=== PATIENT | female | born 1955 | race Caucasian/White ===

== ENCOUNTER → 2023-05-17 06:23 | Day surgery (SDC) | payer MEDICARE, BC, SELFPAY | LOC: GI 06:23 | PROVIDERS: ATTENDING PHYSICIAN Specialist; FAMILY PHYSICIAN Internal Medicine | DX: K22.70 Barrett's esophagus without dysplasia (principal); K29.60 Other gastritis without bleeding; K22.89 Other specified disease of esophagus; K31.89 Other diseases of stomach and duodenum; R10.13 Epigastric pain; D50.9 Iron deficiency anemia, unspecified | CPT/HCPCS: 43239; 88305; 88342 ==

== ENCOUNTER → 2023-06-06 10:14 | Outpatient (REF) | payer MEDICARE, BC, SELFPAY | LOC: WDC 10:14 | PROVIDERS: ATTENDING PHYSICIAN Obstetrics & Gynecology; FAMILY PHYSICIAN Internal Medicine | DX: N64.4 Mastodynia (principal) | CPT/HCPCS: 76642; 77062; 77066 ==

== ENCOUNTER → 2023-08-07 16:30 | Outpatient (REF) | payer BC, MEDICARE, SELFPAY ==
[2023-08-07 17:02] LABS: % Basophils 0.5 % (0-2); % Eosinophils 1.3 % (0-6); % Immature Granulocytes 0.3 % (0-0.5); % Neutrophils 50.9 % (42.2-75.2); Absolute Eosinophils 0.1 10^3/uL (0-0.7); Absolute Lymphocytes 1.4 10^3/uL (1.2-3.4); Absolute Monocytes 0.3 10^3/uL (0.1-0.6); Absolute Neutrophils 1.9 10^3/uL (1.4-6.5); Hemoglobin 13.7 g/dL (12.0-16.0); Mean Corp Hgb Conc. 35.1 g/dL (33.0-37.0); Mean Corpuscular Hgb 32.5 pg (27.0-31.0); Mean Corpuscular Volume 92.4 fL (81.0-99.0); Mean Platelet Volume 9.7 fL (7.4-10.4); Nucleated Red Blood Cells % 0 %; Platelet Count 264 10^3/uL (130-400); Red Blood Cell Count 4.22 10^6/uL (4.20-5.40); Red Cell Dist. Width 11.6 % (11.5-14.5); White Blood Cell Count 3.8 10^3/uL (4.8-10.8)
[2023-08-07 17:18] LABS: ALT (SGPT) 25 U/L (0-35); AST (SGOT) 45 U/L (14-36); Albumin 4.7 g/dl (3.5-5.0); Alkaline Phosphatase 141 U/L (38-126); Blood Urea Nitrogen 24 mg/dl (7-17); Calcium 10.3 mg/dl (8.4-10.2); Carbon Dioxide 28 mmol/L (22-30); Chloride 101 mmol/L (98-107); Glucose 88 mg/dl (70-99); Iron 121 ug/dl (37-170); Potassium 3.9 mmol/L (3.5-5.1); Sodium 135 mmol/L (135-145); Total Bilirubin 0.5 mg/dl (0.2-1.3); Total Protein 7.5 g/dl (6.3-8.2); eGFR > 60.00
[2023-08-07 17:52] LABS: Percent Saturation 40 % (20-50); Total Iron Binding Capacity 300 ug/dl (265-497)
[2023-08-07 17:53] LABS: Ferritin 97.8 ng/ml (11.1-264.0)
[2023-08-07 18:25] LABS: Folate 14.1 ng/ml (2.76-20); Vitamin B12 714 pg/ml (239-931)
[2023-08-09 13:57] LABS: Beta-2-Microglobulin 1.3 mg/L (<=3.0)
[2023-08-10 23:52] LABS: Albumin 4.53 g/dL (3.75-5.01); Alpha 1 Globulin 0.29 g/dL (0.19-0.46); Alpha 2 Globulin 0.71 g/dL (0.48-1.05); Free Kappa Light Chains,Quant 12.97 mg/L (3.30-19.40); Free Lambda Light Chains,Quant 7.78 mg/L (5.71-26.30); IgA 141 mg/dL (68-408); IgG 913 mg/dL (768-1632); IgM 61 mg/dL (35-263); Immunofixation Electrophoresis IFE Done; Kappa/Lambda Fr Light Ratio 1.67 (0.26-1.65); Total Protein-Electrophoresis 7.2 g/dL (6.3-8.2)
== END ==
LOC: REG 16:30
PROVIDERS: ATTENDING PHYSICIAN Internal Medicine Hematology & Oncology; OTHER PHYSICIAN Internal Medicine Rheumatology
DX: D50.0 Iron deficiency anemia secondary to blood loss (chronic) (principal); R53.83 Other fatigue
CPT/HCPCS: 36415; 80053; 82232; 82607; 82728; 82746; 82784; 83521; 83540; 83550; 84155; 84165; 85025; 86334

== ENCOUNTER → 2023-09-18 14:24 | Outpatient (REF) | payer BC, MEDICARE, SELFPAY ==
[2023-09-18 16:05] LABS: % Basophils 0.8 % (0-2); % Eosinophils 1.5 % (0-6); % Immature Granulocytes 0.5 % (0-0.5); % Lymphocytes 33.2 % (20.5-51.1); % Monocytes 8.6 % (1.7-9.3); % Neutrophils 55.4 % (42.2-75.2); Absolute Eosinophils 0.1 10^3/uL (0-0.7); Absolute Lymphocytes 1.3 10^3/uL (1.2-3.4); Absolute Monocytes 0.3 10^3/uL (0.1-0.6); Absolute Neutrophils 2.2 10^3/uL (1.4-6.5); Hematocrit 38.8 % (37.0-47.0); Hemoglobin 13.5 g/dL (12.0-16.0); Mean Corp Hgb Conc. 34.8 g/dL (33.0-37.0); Mean Corpuscular Hgb 32.4 pg (27.0-31.0); Nucleated Red Blood Cells % 0 %; Platelet Count 264 10^3/uL (130-400); Red Blood Cell Count 4.17 10^6/uL (4.20-5.40); Red Cell Dist. Width 11.5 % (11.5-14.5); White Blood Cell Count 3.9 10^3/uL (4.8-10.8)
[2023-09-18 16:32] LABS: ALT (SGPT) 24 U/L (0-35); AST (SGOT) 41 U/L (14-36); Albumin 4.7 g/dl (3.5-5.0); Alkaline Phosphatase 157 U/L (38-126); Blood Urea Nitrogen 22 mg/dl (7-17); Calcium 10.2 mg/dl (8.4-10.2); Carbon Dioxide 27 mmol/L (22-30); Chloride 99 mmol/L (98-107); Glucose 82 mg/dl (70-99); Iron 115 ug/dl (37-170); Sodium 136 mmol/L (135-145); Total Bilirubin 0.5 mg/dl (0.2-1.3); Total Protein 7.3 g/dl (6.3-8.2); eGFR > 60.00
[2023-09-18 16:40] LABS: Percent Saturation 33 % (20-50); Total Iron Binding Capacity 343 ug/dl (265-497)
[2023-09-18 17:33] LABS: Folate 12.5 ng/ml (2.76-20); Vitamin B12 628 pg/ml (239-931)
== END ==
LOC: RAD 14:24
PROVIDERS: ATTENDING PHYSICIAN Obstetrics & Gynecology; FAMILY PHYSICIAN Internal Medicine; REFERRING PHYSICIAN Internal Medicine Hematology & Oncology
DX: Z78.0 Asymptomatic menopausal state (principal); D50.0 Iron deficiency anemia secondary to blood loss (chronic); R53.83 Other fatigue
CPT/HCPCS: 36415; 80053; 82607; 82728; 82746; 82784; 83521; 83540; 83550; 84155; 84165; 85025; 86146; 86334

== ENCOUNTER → 2023-10-25 13:29 | Outpatient (REF) | payer BC, SELFPAY ==
[2023-10-25 15:23] LABS: Creatine Phosphokinase 155 U/L (30-135)
[2023-10-25 15:24] LABS: Erythrocyte Sed Rate 10 mm/hour (0-20)
[2023-10-25 16:48] LABS: C-Reactive Protein < 5.00 mg/L (0.0-10.00)
[2023-10-25 17:11] LABS: Hepatitis B Surface Antigen Negative (Negative)
[2023-10-25 17:31] LABS: Vitamin D, 25-OH*** 31.3 ng/mL (30-80)
[2023-10-25 17:45] LABS: TSH 0.43 uIU/ml (0.47-4.68)
[2023-10-25 18:46] LABS: Hepatitis B Core Ab, IgM Negative (Negative)
== END ==
LOC: RAD 13:29
PROVIDERS: ATTENDING PHYSICIAN Physician Assistant
DX: E55.9 Vitamin D deficiency, unspecified (principal); G89.29 Other chronic pain; K75.9 Inflammatory liver disease, unspecified; M06.09 Rheumatoid arthritis without rheumatoid factor, multiple sites; M25.562 Pain in left knee; Z11.1 Encounter for screening for respiratory tuberculosis; M79.18 Myalgia, other site; M54.2 Cervicalgia
CPT/HCPCS: 36415; 72050; 72114; 73564; 82306; 82550; 84443; 85652; 86140; 86200; 86430; 86705; 87340

== ENCOUNTER 2024-05-05 02:01 | Emergency (ER) | payer BC, MEDICARE, SELFPAY ==
[2024-05-05 02:05] VITALS: BP 176/110
[2024-05-05 02:15] VITALS: BMI 28.3
[2024-05-05 02:20] LABS: % Basophils 0.5 % (0-2); % Immature Granulocytes 0.1 % (0-0.5); % Lymphocytes 37.3 % (20.5-51.1); % Monocytes 8.6 % (1.7-9.3); % Neutrophils 51.5 % (42.2-75.2); Absolute Eosinophils 0.2 10^3/uL (0-0.7); Absolute Lymphocytes 3.1 10^3/uL (1.2-3.4); Absolute Monocytes 0.7 10^3/uL (0.1-0.6); Absolute Neutrophils 4.3 10^3/uL (1.4-6.5); Hematocrit 44.3 % (37.0-47.0); Hemoglobin 15.8 g/dL (12.0-16.0); Mean Corp Hgb Conc. 35.7 g/dL (33.0-37.0); Mean Corpuscular Hgb 31.7 pg (27.0-31.0); Mean Platelet Volume 9.4 fL (7.4-10.4); Nucleated Red Blood Cells % 0 %; Platelet Count 353 10^3/uL (130-400); Red Blood Cell Count 4.98 10^6/uL (4.20-5.40); Red Cell Dist. Width 11.5 % (11.5-14.5); White Blood Cell Count 8.4 10^3/uL (4.8-10.8)
[2024-05-05 02:42] LABS: ALT (SGPT) 25 U/L (0-35); AST (SGOT) 33 U/L (14-36); Albumin 4.9 g/dl (3.5-5.0); Alkaline Phosphatase 186 U/L (38-126); Blood Urea Nitrogen 31 mg/dl (7-17); Calcium 10.3 mg/dl (8.4-10.2); Carbon Dioxide 18 mmol/L (22-30); Chloride 101 mmol/L (98-107); Estimated Creatinine Clearance 75 ml/min; Glucose 126 mg/dl (70-99); Sodium 137 mmol/L (135-145); Total Bilirubin 0.7 mg/dl (0.2-1.3); Total Protein 7.9 g/dl (6.3-8.2); eGFR > 60.00
[2024-05-05 02:53] LABS: Troponin I < 0.012 ng/ml
[2024-05-05 03:00] VITALS: BP 147/89
--- NOTE | 2024-05-05 03:50 | ED.GENMED ---
History of Present Illness
General
Chief Complaint: Chest Pain
Source: patient
Time Seen by Provider: 05/05/24 03:41
History of Present Illness
History of Present Illness:
68-year-old female presents to the emergency room after being awoken from sleep with chest discomfort. She describes as a heaviness in her chest. Pain was more severe earlier. It still exists but is better. Patient denies any previous cardiac
disease. She does have a history of anxiety and depression for which she was prescribed several medications. She stopped taking her medications about 5 days ago. Previous. Prescribed Pristiq, lamotrigine, lorazepam and Vyvanse. She restarted
the Pristiq 2 days ago. She did not take the lorazepam yesterday or today. Patient did recently travel to [place].
Past History
Past History
ED Past Medical History: HTN and Other (Rheumatoid arthritis, osteoarthritis, depression, anxiety)
ED Past Surgical History: Other (Procedures for varicosities)
Social History
Tobacco: Non-smoker
Alcohol: None
Drug: None
Personal:
Living: with family
Employment: Employed
Family History
Family History: Other (Noncontributory)
Phy Exam
Physical Exam
Physical Exam:
General: Awake, Alert, Oriented X3. No acute distress.
Vitals: unremarkable
Head: Atraumatic
Eyes: Pupils equal, EOMI
Throat: Airway intact, no exudates
Neck: Trachea midline
Lungs: Clear and equal b/l
Heart: Regular rate, no murmurs
Abd: Soft, Nontender, No pulsatile mass
Neuro: Nonfocal
Skin: Warm, dry, no rash
Extremities: pulses equal b/l, no edema
Scores
Heart Score for Chest Pain Patients
STEMI patient?: No
History: Slightly or Non-Suspicious
ECG: Normal
Age: >45 - <65 years
Risk Factors: 1 or 2 Risk Factors
Troponin: </= Normal Limit
Heart Score for Chest Pain Patients: 2
Heart Score Risk: 2.5% MACE over next 6 weeks
Course
Orders/Labs/Results
Orders:
Orders
05/05/24 02:02
ECG [Electrocardiogram (*1)] Urgent
Reason for Study: Chest Pain
EKG- Treatment ONCE
05/05/24 02:13
Complete Blood Count/With Diff Urgent
Comprehensive Metabolic Panel Urgent
Troponin I Urgent
05/05/24 03:50
Lorazepam [Ativan] 1 mg IV NOW STA
05/05/24 04:01
D-Dimer Urgent
Abnormal Lab Results
05/05/24
02:13
MCH 31.7 H pg
(27.0-31.0)
Absolute Monos (auto) 0.7 H 10^3/uL
(0.1-0.6)
Potassium 3.0 L mmol/L
(3.5-5.1)
Carbon Dioxide 18 L mmol/L
(22-30)
BUN 31 H mg/dl
(7-17)
Glucose 126 H mg/dl
(70-99)
Calcium 10.3 H mg/dl
(8.4-10.2)
Alkaline Phosphatase 186 H U/L
(38-126)
05/05/24 02:13
05/05/24 02:13
Vital Signs
Initial and Last Documented VS:
Initial Vital Signs
Temp Pulse Resp BP Pulse Ox
97.1 F 92 36 176/110 100
05/05/24 02:05 05/05/24 02:05 05/05/24 02:05 05/05/24 02:05 05/05/24 02:05
Last Documented Vital Signs
Temp Pulse Resp BP Pulse Ox
97.1 F 76 20 147/89 99
05/05/24 02:05 05/05/24 04:45 05/05/24 04:45 05/05/24 03:00 05/05/24 04:45
MDM/Problems Addressed
Differential Diagnosis Includes:
ACS, PE, anxiety, benzo withdrawal
MDM/Problems Addressed:
Patient presents with chest pain, palpitations, feeling short of breath. Workup here shows normal D-dimer, normal troponin, normal EKG. Patient did abruptly stop some of her psychiatric medications. Suspect this is at least in part in withdrawal
type situation. Patient feels much better after Ativan here. Given her normal workup she stable for discharge home. She should discuss medication management and adjustment with her primary care provider. She understands now that she will need to
be weaned off of some of her medication should she desire to not take them anymore
*Pulse Oximetry
Patient hypoxic: no
*EKG
Interpreted by ED Provider?: Yes
Heart Rate: 92
Rate: normal
Rhythm: sinus
[place]: normal axis
Interval: normal interval
QRS Pattern: normal QRS
Ischemia: no ischemia
*Code Inspector Interpretation
Rate: normal
Interpretation: normal
Rhythm: sinus
*Critical Care Note
Total Time (30-74mins, 75-104mins- exclusive of procedures): Not Applicable
ED Attending Note
-
Portions of this chart may have been created with voice recognition software.� Occasional wrong word or��sound alike� substitutions may have occurred due to the inherent limitations of voice recognition software.
Discharge Plan
Departure
Patient Disposition: Home (Routine Discharge)
Date of Disposition: 05/05/24
Time of Disposition: 05:37
Patient with high blood pressure during this ER visit?: Yes
Condition: Good
Discharge Problem:
Chest pain, Acute anxiety, Benzodiazepine withdrawal
Instructions: Anxiety, Adult (DC), Chest Pain PCP Follow Up, BLOOD PRESSURE
Prescriptions:
No Action
cyclobenzaprine 10 MG tablet
10 mg PO PRN (Reason: muscle spasms)
lorazepam 0.5 MG tablet
0.5 mg PO PRN (Reason: anxiety)
diclofenac sodium 75 MG tablet,delayed release (DR/EC)
75 mg PO BID
hydroxychloroquine 200 MG tablet
200 mg PO BID
aripiprazole [Abilify] 5 MG tablet
15 mg PO DAILY
Multivitamin
4 PO DAILY
Patient Comments:
4 adult gummies
Probiotics
3 capsules PO QID
Patient Comments:
with meals
Restasis 0.05% Ophthalmic Emulsion:
2 drp BOTH EYES BID
Vitamin D
800 mg PO DAILY
calcium carbonate [Calcium 600] 600 MG tablet
600 mg PO BID
docosahexaenoic acid-epa 1 CAP capsule
2 cap PO BID
Flonase Nasal [place]:
sennosides [senna] 1 TABLET tablet
2 tab PO BID Qty: 0 0RF
acetaminophen 325 MG tablet
650 mg PO Q4HWA Qty: 0 0RF
aspirin 325 MG tablet,delayed release (DR/EC)
325 mg PO DAILY Qty: 0 0RF
docusate sodium 100 MG capsule
100 mg PO BID Qty: 0 0RF
oxycodone 5 MG tablet
5 - 10 mg PO Q4HPRN PRN (Reason: mild pain) Qty: 120 0RF
oxycodone [OxyContin] 10 MG tablet,oral only,ext.rel.12 hr
10 mg PO DAILY Qty: 7 0RF
irbesartan 150 MG tablet
150 mg PO DAILY Qty: 0 0RF
Patient Comments:
in the pm
ondansetron HCl 4 MG tablet
4 mg PO Q8HPRN PRN (Reason: nausea) Qty: 10 0RF
Referrals:
Jaspreet Williamson, DO [Family Provider] -
Activity Restrictions/Additional Instructions:
Do not stop your medications abruptly. If you wish to get off of lorazepam and other medications you will need to be weaned off. Discuss this with your family doctor
Interventions
Interventions:
*Risk Screen - Suicide Last Done: 05/05/24 02:15
*General Assessment Last Done: 05/05/24 02:15
*Neglect/Abuse Screening Last Done: 05/05/24 02:15
ED- Fall Risk Assessment Last Done: 05/05/24 02:26
*ED COVID-19 Vaccine History Last Done: 05/05/24 02:15
ED- Cardiac Assessment Last Done: 05/05/24 02:26
ED-Psychological Assessment Last Done: 05/05/24 02:27
Discharge Date and Time
Print Language: BULGARIAN
[2024-05-05] MEDS: ATIVAN 1 MG IV (04:00)
[2024-05-05 04:53] LABS: D-Dimer < 0.27 ug/mlFEU (0.00-0.50)
== END 2024-05-05 06:01 | disposition home or self-care (01) ==
LOC: EMR 02:01
PROVIDERS: Emergency Medicine; EMERGENCY PHYSICIAN Emergency Medicine; FAMILY PHYSICIAN Internal Medicine
DX: R07.89 Other chest pain (principal); F41.9 Anxiety disorder, unspecified; F13.239 Sedative, hypnotic or anxiolytic dependence with withdrawal, unspecified; I10 Essential (primary) hypertension; F32.A Depression, unspecified
CPT/HCPCS: 99284; 96374; 80053; 84484; 85025; 85379; 93005

== ENCOUNTER 2024-07-20 06:20 | Day surgery (SDC) | payer BC, MEDICARE, SELFPAY ==
[2024-06-23 14:18] VITALS: BMI 30.6
[2024-06-23 14:18] LABS: Hematocrit 39.3 % (37.0-47.0); Hemoglobin 13.4 g/dL (12.0-16.0); Mean Corp Hgb Conc. 34.1 g/dL (33.0-37.0); Mean Corpuscular Hgb 31.8 pg (27.0-31.0); Mean Corpuscular Volume 93.3 fL (81.0-99.0); Mean Platelet Volume 10.2 fL (7.4-10.4); Platelet Count 243 10^3/uL (130-400); Red Blood Cell Count 4.21 10^6/uL (4.20-5.40); Red Cell Dist. Width 12.1 % (11.5-14.5); White Blood Cell Count 5.1 10^3/uL (4.8-10.8)
[2024-06-23 14:44] LABS: ALT (SGPT) 22 U/L (0-35); AST (SGOT) 31 U/L (14-36); Albumin 4.4 g/dl (3.5-5.0); Alkaline Phosphatase 151 U/L (38-126); Blood Urea Nitrogen 20 mg/dl (7-17); Calcium 9.9 mg/dl (8.4-10.2); Carbon Dioxide 29 mmol/L (22-30); Chloride 101 mmol/L (98-107); Estimated Creatinine Clearance 91 ml/min; Glucose 87 mg/dl (70-99); Potassium 4.2 mmol/L (3.5-5.1); Sodium 138 mmol/L (135-145); Total Bilirubin 0.4 mg/dl (0.2-1.3); Total Protein 7.2 g/dl (6.3-8.2); eGFR > 60.00
[2024-06-23 17:09] VITALS: BMI 30.6
[2024-06-24 09:21] LABS: Glycohemoglobin (HgbA1c) 5.4 % (4.0-5.6)
[2024-07-20] VITALS (11 sets, daily range): BP systolic 123–158; BP diastolic 69–87
[2024-07-20] MEDS: NORMOSOL-R/PLASMALYTE-A 1000 IV (07:20)
[2024-07-20] MEDS: TYLENOL 650 MG PO (07:21)
[2024-07-20] MEDS: CELEBREX 200 MG PO (07:21)
--- NOTE | 2024-07-20 07:29 | W.DS.TRANS ---
DC Summary - Manager Statistical
-
Discharge Instructions:
Sleep Apnea Risk Low
Discharge Diagnosis/Procedures L TKA 07/20/24
Diet As tolerated
Activity With Walker
Driving Restrictions No driving
Bathing Restrictions OK to Shower
Other Services PT
Instructions:
Stand-Alone Forms: SDS Total Hip and Knee D/C
Changes to Home Medications: Yes
Discharge Medications:
DC Medications w/original date entered in [employer]
cyclobenzaprine 10 mg tablet 10 mg PO QID PRN Muscle Spasms 07/07/12
Sudafed 1 tab PO Q4H PRN congestion 06/19/24
cetirizine 10 mg tablet (Zyrtec) 10 mg PO DAILY PRN allergies 06/19/24
cyclosporine 0.05 % eye drops in a dropperette (Restasis) 1 drp ophthalmic (eye) Q12H 06/19/24
desvenlafaxine succinate 100 mg tablet,extended release 24 hr (Pristiq) 100 mg PO DAILY 06/19/24
estradiol 10 mcg vaginal tablet (Vagifem) 10 mcg vaginal .2 TIMES A WEEK 06/19/24
lamotrigine 150 mg tablet 150 mg PO BID 06/19/24
lisdexamfetamine 70 mg capsule (Vyvanse) 70 mg PO 1500 06/19/24
lorazepam 1 mg tablet 1 mg PO DIRECTED 06/19/24
lorazepam 1 mg tablet 2 mg PO HS PRN anxiety 06/19/24
multivitamin 1 tab PO DAILY 06/19/24
polyethylene glycol 3350 17 gram oral powder packet (Miralax) 17 g PO BID 06/19/24
trazodone 100 mg tablet 200 mg PO HS 06/19/24
mupirocin 2 % topical ointment 1 applic intranasal BID #1 tube 06/23/24
irbesartan 75 mg tablet 75 mg PO DAILY 07/06/24
nebivolol 10 mg tablet 10 mg PO DAILY 07/07/24
vonoprazan 10 mg tablet (Voquezna) 20 mg PO DAILY reflux 07/07/24
acetaminophen 325 mg tablet 650 mg (2 x 325 mg) PO QID #0 tabs 07/20/24
acetaminophen 325 mg tablet (Tylenol) 650 mg (2 x 325 mg) PO QID #1 tab 07/20/24
aspirin 325 mg tablet 325 mg PO DAILY blood clot prevention #1 tab 07/20/24
dexamethasone 4 mg tablet 4 mg PO BID inflammation #6 tabs 07/20/24
docusate sodium 100 mg capsule (Colace) 100 mg PO BID stool softner #1 cap 07/20/24
gabapentin 300 mg capsule 300 mg PO HS sleep/pain #10 caps 07/20/24
magnesium hydroxide 400 mg/5 mL oral suspension (Milk of Magnesia) 30 ml PO HS PRN Constipation #1 mL 07/20/24
meloxicam 15 mg tablet 15 mg PO DAILY anti-inflammatory #14 tabs 07/20/24
ondansetron 4 mg disintegrating tablet 4 mg PO Q6H PRN n/v #20 tabs 07/20/24
oxycodone 5 mg tablet 5 mg PO Q6H PRN 1 tab moderate pain, 2 tabs severe pain #30 tabs 07/20/24
sennosides 8.6 mg tablet (Senokot) 17.2 mg (2 x 8.6 mg) PO BID laxative #2 tabs 07/20/24
Home Medication Changes
mupirocin 2 % topical ointment 1 applic intranasal BID #1 tube 06/23/24
irbesartan 75 mg tablet 75 mg PO DAILY 07/06/24
nebivolol 10 mg tablet 10 mg PO DAILY 07/07/24
vonoprazan 10 mg tablet (Voquezna) 20 mg PO DAILY reflux 07/07/24
acetaminophen 325 mg tablet 650 mg (2 x 325 mg) PO QID #0 tabs 07/20/24
acetaminophen 325 mg tablet (Tylenol) 650 mg (2 x 325 mg) PO QID #1 tab 07/20/24
aspirin 325 mg tablet 325 mg PO DAILY blood clot prevention #1 tab 07/20/24
dexamethasone 4 mg tablet 4 mg PO BID inflammation #6 tabs 07/20/24
docusate sodium 100 mg capsule (Colace) 100 mg PO BID stool softner #1 cap 07/20/24
gabapentin 300 mg capsule 300 mg PO HS sleep/pain #10 caps 07/20/24
magnesium hydroxide 400 mg/5 mL oral suspension (Milk of Magnesia) 30 ml PO HS PRN Constipation #1 mL 07/20/24
meloxicam 15 mg tablet 15 mg PO DAILY anti-inflammatory #14 tabs 07/20/24
ondansetron 4 mg disintegrating tablet 4 mg PO Q6H PRN n/v #20 tabs 07/20/24
oxycodone 5 mg tablet 5 mg PO Q6H PRN 1 tab moderate pain, 2 tabs severe pain #30 tabs 07/20/24
sennosides 8.6 mg tablet (Senokot) 17.2 mg (2 x 8.6 mg) PO BID laxative #2 tabs 07/20/24
Pending Results: No
--- NOTE | 2024-07-20 08:13 | CM ---
CM was updated that patient with be discharged to home post-operatively. CM updated [facility] Admission RN.
--- NOTE | 2024-07-20 08:30 | VNURNOTE ---
[facility] lia[facility] rec'ed info that patient changed her mind and now wanted to go home same day of surgery. [facility] Intake, supervisors, schedulers notified. Liaison called patient's spouse Tono and explained SDS services. Verified address. Spouse
stated he will cotton picker walker from Ortho today. Referral placed in [facility].
[2024-07-20] MEDS: ANCEF 5 IV (12:04)
[2024-07-20] MEDS: ROXICODONE 5 MG PO (12:47)
== END 2024-07-20 12:50 | disposition home or self-care (01) ==
LOC: SDS 06:20
PROVIDERS: ATTENDING PHYSICIAN Specialist; FAMILY PHYSICIAN Internal Medicine; OTHER PHYSICIAN Physician Assistant
DX: M17.12 Unilateral primary osteoarthritis, left knee (principal); I49.3 Ventricular premature depolarization; G62.9 Polyneuropathy, unspecified
CPT/HCPCS: 27447; 36415; 73560; 80053; 83036; 85027; 87070; 93005; 97162; C1713; C1776

== ENCOUNTER → 2024-08-03 15:42 | Outpatient (REF) | payer BC, MEDICARE, SELFPAY | LOC: RAD 15:42 | PROVIDERS: ATTENDING PHYSICIAN Physician Assistant Surgical; FAMILY PHYSICIAN Internal Medicine | DX: Z96.652 Presence of left artificial knee joint (principal) | CPT/HCPCS: 93971 ==

== ENCOUNTER 2024-08-17 15:43 | Emergency (ER) | payer BC, MEDICARE, SELFPAY ==
[2024-08-17 16:01] VITALS: BP 177/95
[2024-08-17 16:12] LABS: % Basophils 0.8 % (0-2); % Eosinophils 3.9 % (0-6); % Immature Granulocytes 0.2 % (0-0.5); % Lymphocytes 31.8 % (20.5-51.1); % Monocytes 10.5 % (1.7-9.3); % Neutrophils 52.8 % (42.2-75.2); Absolute Eosinophils 0.2 10^3/uL (0-0.7); Absolute Lymphocytes 1.6 10^3/uL (1.2-3.4); Absolute Monocytes 0.5 10^3/uL (0.1-0.6); Absolute Neutrophils 2.7 10^3/uL (1.4-6.5); Hematocrit 38.5 % (37.0-47.0); Hemoglobin 12.7 g/dL (12.0-16.0); Mean Corpuscular Hgb 31.2 pg (27.0-31.0); Mean Corpuscular Volume 94.6 fL (81.0-99.0); Mean Platelet Volume 9.3 fL (7.4-10.4); Nucleated Red Blood Cells % 0 %; Platelet Count 364 10^3/uL (130-400); Red Blood Cell Count 4.07 10^6/uL (4.20-5.40); Red Cell Dist. Width 12.1 % (11.5-14.5); White Blood Cell Count 5.2 10^3/uL (4.8-10.8)
[2024-08-17 16:39] LABS: ALT (SGPT) 14 U/L (0-35); AST (SGOT) 24 U/L (14-36); Albumin 4.7 g/dl (3.5-5.0); Alkaline Phosphatase 140 U/L (38-126); Blood Urea Nitrogen 23 mg/dl (7-17); Calcium 9.8 mg/dl (8.4-10.2); Carbon Dioxide 27 mmol/L (22-30); Chloride 103 mmol/L (98-107); Glucose 103 mg/dl (70-99); Sodium 140 mmol/L (135-145); Total Bilirubin 0.4 mg/dl (0.2-1.3); Total Protein 7.5 g/dl (6.3-8.2); eGFR > 60.00
[2024-08-17 16:45] LABS: Troponin I < 0.012 ng/ml
--- NOTE | 2024-08-17 18:59 | ED.GENMED ---
History of Present Illness
General
Chief Complaint: Cardiac Symptoms
Time Seen by Provider: 08/17/24 18:59
History of Present Illness
History of Present Illness:
TIME OF INITIAL ENCOUNTER: 7 PM
HPI: Earlier today, the patient had sharp stabbing pain in the anterior chest. The symptoms have spontaneously improved currently. She has no exertional symptoms. There is some of shortness of breath. She had a similar episode a couple of months
ago that was related to benzo withdrawal when she forgot her medication on a vacation. She did have left knee surgery about a month ago. She had been on aspirin.
EXAM:
GENERAL: Well appearing in no distress
HEENT: Moist oral mucosa
CARDIOVASCULAR: No murmurs, normal heart rate, regular rhythm, No significant chest wall tenderness
PULMONARY: No respiratory distress, breath sounds are clear and equal
ABDOMEN: Soft with no peritoneal signs, no tenderness
NEUROLOGIC: Excellent strength all extremities, no coordination deficits
PSYCHIATRIC: Appropriate mental status, normal insight and judgement
EXTREMITIES: Surgical wound noted left anterior knee with cha
SKIN: No rash, no lesions
NUMBER AND COMPLEXITY OF PROBLEMS ADDRESSED AT THE ENCOUNTER
� Chronic conditions affecting care: Anemia, anxiety/depression, GERD, high blood pressure
� Acute Exacerbation and/or Progression of Chronic Illness: This is an acute problem
� Differential Diagnosis includes: Anxiety, chest wall pain, GERD, PE, ACS
AMOUNT AND/OR COMPLEXITY OF DATA TO BE REVIEWED AND ANALYZED
� I performed an independent evaluation of and my interpretation is:
EKG: Sinus 88, left axis deviation, no acute ST abnormality, no significant change from 06/23/2024
CT: I personally reviewed the CAT scan and see no evidence of PE
X-rays:
Laboratory Studies: CBC unremarkable, chemistries relatively unremarkable on the BUN slightly high 23, troponin less than 0.012
Other:
� Review of other/old records: I reviewed records, the patient had left knee replacement with Dr. Ray 07/20/2024
� Clinical information was obtained by an independent historian: None needed
� Prescriptions/Medications Considered but not given:
� Further testing considered but not performed:
RISK OF COMPLICATIONS AND/OR MORBIDITY OR MORTALITY OF PATIENT MANAGEMENT
� Social determinants of health affecting care: Lives at home
� Discussion with other providers:
� Escalation of care including admission/observation vs risk of discharge considered: The patient EKG and troponin are unremarkable. However, the patient did have recent surgery with some degree of shortness of breath. Will
obtain CT imaging for further evaluation.
ANY OTHER UPDATES:
9:40 PM: On reassessment, the patient appears comfortable. Of note the patient is on benzos totaling 4 mg/day. She does not think that her symptoms are related to anxiety currently. Her symptoms were described as sharp and stabbing earlier but
currently appears comfortable. She also reported some back discomfort but CT imaging is negative for PE or dissection.
Past History
Past History
ED Past Medical History: HTN and Other (Rheumatoid arthritis, osteoarthritis, depression, anxiety)
ED Past Surgical History: Other (Procedures for varicosities)
Social History
Tobacco: Non-smoker
Alcohol: None
Drug: None
Personal:
Living: with family
Employment: Employed
Family History
Family History: Other (Noncontributory)
Phy Exam
Physical Exam
Physical Exam:
See HPI
Course
Orders/Labs/Results
Orders:
Orders
08/17/24 15:44
ECG [Electrocardiogram (*1)] Urgent
Reason for Study: Chest Pain
EKG- Treatment ONCE
08/17/24 16:06
Complete Blood Count/With Diff Urgent
Comprehensive Metabolic Panel Urgent
Troponin I Urgent
08/17/24 19:12
CT Chest PE Study Urgent
Comment:
Reason For Exam: post op sob
Abnormal Lab Results
08/17/24
16:06
RBC 4.07 L 10^6/uL
(4.20-5.40)
MCH 31.2 H pg
(27.0-31.0)
Monocytes % 10.5 H %
(1.7-9.3)
BUN 23 H mg/dl
(7-17)
Glucose 103 H mg/dl
(70-99)
Alkaline Phosphatase 140 H U/L
(38-126)
08/17/24 16:06
08/17/24 16:06
Vital Signs
Initial and Last Documented VS:
Initial Vital Signs
Temp Pulse Resp Pulse Ox
36.6 C 86 18 99
08/17/24 15:58 08/17/24 15:58 08/17/24 15:58 08/17/24 15:58
Last Documented Vital Signs
Temp Pulse Resp BP Pulse Ox
36.6 C 67 13 171/82 100
08/17/24 15:58 08/17/24 20:30 08/17/24 20:30 08/17/24 20:00 08/17/24 20:30
*Critical Care Note
Total Time (30-74mins, 75-104mins- exclusive of procedures): Not Applicable
ED Attending Note
-
Portions of this chart may have been created with voice recognition software.� Occasional wrong word or��sound alike� substitutions may have occurred due to the inherent limitations of voice recognition software.
Discharge Plan
Departure
Patient Disposition: Home (Routine Discharge)
Date of Disposition: 08/17/24
Time of Disposition: 21:45
Patient with high blood pressure during this ER visit?: Yes
Discharge Problem:
Chest pain
Instructions: Chest Pain DCA Follow Up, BLOOD PRESSURE
Prescriptions:
No Action
cyclobenzaprine 10 MG tablet
10 mg PO QID PRN (Reason: Muscle Spasms)
multivitamin Tablet
1 tab PO DAILY
lamotrigine 150 mg Tablet
150 mg PO BID
polyethylene glycol 3350 [Miralax] 17 gram Powder In Packet
17 g PO BID
cetirizine [Zyrtec] 10 mg Tablet
10 mg PO DAILY PRN (Reason: allergies)
trazodone 100 mg Tablet
200 mg PO HS
lorazepam 1 mg Tablet
1 mg PO DIRECTED
Rx Instructions:
1mg @ 07:00 and then @ 14:00.
lorazepam 1 mg Tablet
2 mg PO HS PRN (Reason: anxiety)
cyclosporine [Restasis] 0.05 % Dropperette
1 drp OPHTHALMIC (EYE) Q12H
lisdexamfetamine [Vyvanse] 70 mg Capsule
70 mg PO 1500
desvenlafaxine succinate [Pristiq] 100 mg Tablet Extended Release 24 Hr
100 mg PO DAILY
estradiol [Vagifem] 10 mcg Tablet
10 mcg VAGINAL .2 TIMES A WEEK
Sudafed
1 tab PO Q4H PRN (Reason: congestion)
mupirocin 2 % ointment
1 applic intranasal BID Qty: 1 0RF
Patient Comments:
Patient administered this medication @ 05:30 on 07/20/24.
irbesartan 75 mg Tablet
75 mg PO DAILY
nebivolol 10 mg Tablet
10 mg PO DAILY
Voquezna 10 mg Tablet
20 mg PO DAILY
sennosides [Senokot] 8.6 mg tablet
17.2 mg PO BID Qty: 2 0RF
acetaminophen [Tylenol] 325 mg tablet
650 mg PO QID Qty: 1 0RF
Rx Instructions:
SCHEDULED DOSING
aspirin 325 mg tablet
325 mg PO DAILY Qty: 1 0RF
Rx Instructions:
Take with food
meloxicam 15 mg tablet
15 mg PO DAILY Qty: 14 0RF
Rx Instructions:
take with food
post-op
magnesium hydroxide [Milk of Magnesia] 400 mg/5 mL suspension
30 ml PO HS PRN (Reason: Constipation) Qty: 1 0RF
dexamethasone 4 mg tablet
4 mg PO BID Qty: 6 0RF
Rx Instructions:
take with food
post-op use only
docusate sodium [Colace] 100 mg capsule
100 mg PO BID Qty: 1 0RF
gabapentin 300 mg capsule
300 mg PO HS Qty: 10 0RF
Rx Instructions:
*POST-OP USE ONLY
ondansetron 4 mg tablet,disintegrating
4 mg PO Q6H PRN (Reason: n/v) Qty: 20 0RF
Rx Instructions:
take 1/2h b/f pain med if recurrent nausea
allow to dissolve in mouth w/o water
oxycodone 5 mg tablet
5 mg PO Q6H PRN (Reason: 1 tab moderate pain, 2 tabs severe pain) Qty: 30 0RF
Rx Instructions:
Ongoing therapy
POST-OP USE ONLY
acetaminophen 325 MG tablet
650 mg PO QID Qty: 0 0RF
Referrals:
Ramesh Hernandez MD [Active] - Follow up in 2-3 days
Jaspreet Williamson DO [Family Provider] -
Activity Restrictions/Additional Instructions:
The cause of your symptoms is unclear but does not appear to be related to a heart attack or blood clot in the lung. Other basic blood work is normal. I recommend that you follow-up with a lead net software developer such as Dr. Hernandez. Somebody from their
office should be calling you to help arrange close follow-up however if you do not hear from them then please call his office to get an appointment.
Interventions
Interventions:
*Risk Screen - Suicide Last Done: 08/17/24 16:01
*General Assessment Last Done: 08/17/24 16:00
*Neglect/Abuse Screening Last Done: 08/17/24 16:01
*ED COVID-19 Vaccine History Last Done: 08/17/24 16:01
ED- Pulmonary Assessment Last Done: 08/17/24 21:26
ED- Cardiac Assessment Last Done: 08/17/24 21:26
Discharge Date and Time
Print Language: TURKISH
[2024-08-17 19:33] VITALS: BP 178/93
[2024-08-17 20:00] VITALS: BP 171/82; BMI 20.4
--- NOTE | 2024-08-17 21:15 | EDRN ---
Patient ambulated to restroom and back in bed to go to CT
--- NOTE | 2024-08-17 21:41 | EDRN ---
Provider at bedside going over results
== END 2024-08-17 22:08 | disposition home or self-care (01) ==
LOC: EMR 15:43
PROVIDERS: Emergency Medicine; EMERGENCY PHYSICIAN Emergency Medicine; FAMILY PHYSICIAN Internal Medicine
DX: R07.89 Other chest pain (principal); R06.02 Shortness of breath; I10 Essential (primary) hypertension; M06.9 Rheumatoid arthritis, unspecified; F41.9 Anxiety disorder, unspecified; F32.A Depression, unspecified; Z98.890 Other specified postprocedural states
CPT/HCPCS: 99284; 71275; 80053; 84484; 85025; 93005; Q9967

== ENCOUNTER → 2024-08-24 12:06 | Outpatient (REF) | payer BC, MEDICARE, SELFPAY | LOC: RAD 12:06 | PROVIDERS: ATTENDING PHYSICIAN Nurse Practitioner Family | DX: M54.50 Low back pain, unspecified (principal) | CPT/HCPCS: 72110 ==

== ENCOUNTER 2024-10-19 08:37 | Inpatient (IN) | payer BC, MEDICARE, SELFPAY ==
--- NOTE | 2024-09-17 11:47 | CM ---
CM left message. CM will await call back.
--- NOTE | 2024-09-17 13:05 | CM ---
CM reviewed medical records. Patient confirmed demographics. Patient lives independently with . Patient does not have a history of VN or SNF. Patient is active with her PCP. Patient will use [facility] for medication
services. Patient does have her outpatient PT appointment made for 10/22 at [facility].
Patient has a walker, cane and venous compression device from previous surgery available.
PLAN: TRISH, Home with outpatient PT.
--- NOTE | 2024-10-08 15:42 | PTCARENOTE ---
Abnormal EKG on 08/17/24. Dr. Salamanca aware. No intervention required.
[2024-10-09 14:22] VITALS: BMI 29.4
[2024-10-09 14:39] LABS: Hematocrit 36.6 % (37.0-47.0); Hemoglobin 12.5 g/dL (12.0-16.0); Mean Corp Hgb Conc. 34.2 g/dL (33.0-37.0); Mean Corpuscular Volume 91.3 fL (81.0-99.0); Platelet Count 250 10^3/uL (130-400); Red Cell Dist. Width 11.9 % (11.5-14.5)
--- NOTE | 2024-10-09 14:45 | HPS.HSE ---
Addendum entered and electronically signed by Amanda Beltran PA-C 10/14/24 15:06:
The patient has stable comorbidities and an ideal living situation. Given this, she is an appropriate candidate for early discharge on 10/20/2024.
Original Note:
Family Physician
-
Family Physician: Jaspreet Williamson
Chief Complaint
-
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
History of Present Illness
The patient is a 68 year-old female presenting today for a mechanical failure of her right total knee prosthesis. The patient previously underwent an uncomplicated right total knee arthroplasty in September 2012 and a left total knee
arthroplasty in July [address] Peter Ray. She reports that as of recently, her right knee has been giving her more trouble. She experiences right knee pain which effects her activities of daily living and overall impacts her quality of
life. She has tried and failed multiple conservative treatment measures in the past for her right knee pain. These conservative treatment measures include activity modification, self-directed therapeutic exercises, medical management with Tylenol
and Flexeril as needed, and the application of ice and/or heat. A recent x-ray of the right knee demonstrated radiolucency consistent with tibial loosening. She was determined to be in need of a revision of her right total knee arthroplasty. She
denies any current complaints today such as chest pain, shortness of breath, palpitations, nausea, vomiting, diarrhea, lightheadedness, dizziness, sore throat, or fever.
Medical History
Past Medical History
Past Medical History: Reports Other
Additional Past Medical History:
1. 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
1. Osteoarthritis, status post right total knee arthroplasty, 09/2012, and left total knee arthroplasty, 07/2024, by Dr. Peter Ray.
2. Hypertension, on multi-drug regimen.
3. PVCs, asymptomatic.
4. Venous varicosities, status post bilateral varicose vein ablation.
5. Exercise-induced asthma.
6. Chronic dyspnea on exertion.
7. GERD.
8. Hogan's esophagus.
9. Chronic constipation.
10. Remote migraines.
11. Peripheral neuropathy.
12. Multilevel degenerative disc disease.
13. Rheumatoid arthritis.
14. Multinodular goiter.
15. Eczema.
16. History of iron deficiency anemia.
17. ADD.
18. Bipolar disorder.
19. Anxiety with benzodiazepine dependence.
20. Osteopenia.
21. Lyme's disease 1995.
22. Dry eyes.
23. Prediabetes, A1c 5.8.
Past Surgical History: Reports Other
Additional Past Surgical History:
1. Left total knee arthroplasty, 07/2024, by Dr. Peter Ray.
2. Right total knee arthroplasty, 09/2012, by Dr. Peter Ray.
3. Right knee arthroscopy.
4. Bilateral varicose vein ablation.
5. section x4.
6. Bilateral bunionectomy.
7. Tonsillectomy.
8. Oral surgery.
9. Bilateral cataract extraction.
10. Multiple colonoscopies.
11. Multiple endoscopies.
Social History
Tobacco: Non-smoker
Alcohol: None
Personal:
Living: Other (The patient lives in a three-story townhouse with her . She reportedly has two steps to enter into her household. She will be doing outpatient physical therapy in [place]. She is initially scheduled for 10/21/24. )
Family History
Family History: Other (The patient reports a family history of a pheochromocytoma.)
Allergies / Home Medications
Allergies reflects when Allergies were last updated in [facility].
Home Medications with original date entered in [facility]
Allergy/Medication List:
Home medications:
1. Acetaminophen 650 mg p.o. every four hours as needed.
2. Zyrtec 10 mg p.o. daily as needed.
3. Cholecalciferol 1 tablet p.o. twice a day.
4. Cyclobenzaprine 10 mg p.o. four times a day as needed.
5. Restasis one drop ophthalmic every 12 hours.
6. Pristiq 100 mg p.o. daily.
7. Estradiol 10 mcg vaginal twice a week.
8. Nebivolol 10 mg p.o. daily.
9. Lamotrigine 150 mg p.o. twice a day.
10. Vyvanse 70 mg p.o. at 2 p.m.
11. Clonazepam 0.5 mg daily and at noon.
12. Clonazepam 1 mg p.o. at bedtime as needed.
13. Multivitamin one tablet p.o. daily.
14. Voquezna 20 mg p.o. daily.
15. MiraLAX 17 gm p.o. twice a day.
16. Sudafed one tablet p.o. every four hours as needed.
17. Trazodone 200 mg p.o. at bedtime.
18. Irbesartan 75 mg p.o. daily.
19. Hydrochlorothiazide 25 mg p.o. daily.
ALLERGIES: NyQuil. DayQuil. Clindamycin. Lidocaine. Demerol. Penicillin.
Review of Systems
-
A 12 point ROS was completed and negative except as noted: Yes
Physical Exam
Vital Signs
Blood pressure 120/75. Heart rate 62. Respirations 18. Pulse ox 99%.
Height 5 feet, 4 inches. Weight 77.6 kg. BMI 29.4.
Physical Exam
General: Well Developed, Well Nourished and No Apparent Distress
HEENT: NormoCephalic, Moist mucous membranes, Atraumatic and PERRLA
Respiratory: Clear
Cardiac: Regular Rhythm
GI: Soft, Non Tender and Non Distended
Musculoskeletal: Other (Right knee: well healed surgical incision. ROM 0-120. No significant warmth, erythema, or effusion. No instability. No pain over proximal tibia. )
Skin: Warm and Dry
Neuro: AO x 3 and Nonfocal/grossly intact
Laboratory Results
-
10/09/24 13:35
DIAGNOSTIC STUDIES as of 10/09/2024: Sodium 140. Potassium 4.1. BUN 24. Creatinine 0.7. Glucose 96. Hemoglobin A1c 5.8. Calcium 10.1. AST 27. ALT 15. Albumin 4.8. Blood type O positive. MRSA screen negative.
EKG 08/17/2024: Normal sinus rhythm. Possible left atrial enlargement. Nonspecific ST abnormality. Compared to the EKG of June 23, 2024, no significant change was found.
Echocardiogram 07/09/2016: Normal left ventricular size, wall thickness, and systolic function. Estimated ejection fraction is 55-60%. Trace mitral regurgitation. Normal echocardiogram.
Impression/Plan
-
CLEARANCES:
1. Primary medical, MATEO Iglesias, deferred from prior left total knee arthroplasty.
Primary phone number: [phone].
2. Dental waived.
IMPRESSION/PLAN:
1. Mechanical failure of right total knee prosthesis in need of a revision of her right total knee arthroplasty with Dr. Peter Ray on 10/19/2024. The benefits and risks of the procedure have been explained to the patient. The patient
understands these risks and wishes to proceed.
2. Deep vein thrombosis prophylaxis: Aspirin with bilateral venous compression devices.
3. Pain management: She will utilize Oxycodone as needed for moderate-severe post-operative pain. Other pain medications will include Tylenol, Decadron, Meloxicam, Gabapentin, Clonazepam, and her home Flexeril as needed. Scripts have been sent into
her pharmacy in advance of her surgery.
4. Chronic constipation and post-operative bowel regimen: The patient would prefer using Miralax initially with Colace. Should no bowel movement occur within 48-72 hours post-procedure, Senokot will be added. Adequate hydration, early mobility as
tolerated, and the minimization of opioids have been discussed nikos-operatively.
Patient's phone number: [phone].
Patient's contact (Tono Grace - Spouse): [phone].
[2024-10-09 15:27] LABS: ALT (SGPT) 15 U/L (0-35); AST (SGOT) 27 U/L (14-36); Albumin 4.8 g/dl (3.5-5.0); Alkaline Phosphatase 127 U/L (38-126); Blood Urea Nitrogen 24 mg/dl (7-17); Calcium 10.1 mg/dl (8.4-10.2); Carbon Dioxide 29 mmol/L (22-30); Chloride 102 mmol/L (98-107); Estimated Creatinine Clearance 76 ml/min; Glucose 96 mg/dl (70-99); Potassium 4.1 mmol/L (3.5-5.1); Sodium 140 mmol/L (135-145); Total Protein 7.9 g/dl (6.3-8.2); eGFR > 60.00
[2024-10-09 16:06] VITALS: BMI 29.4
[2024-10-10 08:14] LABS: Glycohemoglobin (HgbA1c) 5.8 % (4.0-5.6)
[2024-10-19] VITALS (16 sets, daily range): BP systolic 96–129; BP diastolic 52–98; O2SAT 97
[2024-10-19] MEDS: TYLENOL 650 MG PO ×3 (09:38→19:39)
[2024-10-19] MEDS: NORMOSOL-R/PLASMALYTE-A 1000 IV ×3 (09:39→18:16)
[2024-10-19] MEDS: CELEBREX 200 MG PO (09:39)
--- NOTE | 2024-10-19 12:18 | W.PN.UPDATE ---
Update Note
Progress Note Update
Mechanical failure of R TKA s/p Revision of R TKA w/ Dr Ray 10/19/24
- EARLY DISCHARGE
DVT prophylaxis - ASA, b/l venous foot pumps
Hypertension, on multi-drug regimen - monitor BP
- Ensure adequate pain control
PVCs, asymptomatic - monitor on tele
- Continue BB
Exercise-induced asthma and chronic DELEON - monitor O2
- IS
- Duoneb prn
GERD and Hogan's esophagus - Voquezna daily (if available per pharmacy)
- Pepcid HS while inpatient if Voquezna unavailable
Chronic constipation - per pt preference, will start Colace w/ home Miralax
- Will add Senna if no BM occurs within 48-72 hours post-op
- Adequate hydration, early mobility as tolerated, and the minimization of opioids discussed pre-op
Peripheral neuropathy - add Gabapentin HS (tolerated after prior L TKA)
History of iron deficiency anemia - non-invasive hgb in AM
Anxiety with benzodiazepine dependence - will hold Clonazepam if pt becomes overly sedated while on Oxy for post-surgical pain
OA, s/p R TKA, 09/2012, and L TKA, 07/2024, by Dr Ray
Venous varicosities, status post bilateral varicose vein ablation
Remote migraines
Multilevel degenerative disc disease
Rheumatoid arthritis
Multinodular goiter
Eczema
ADD
Bipolar disorder
Osteopenia
Lyme's disease 1995
Dry eyes
Prediabetes, A1c 5.8
[2024-10-19] MEDS: TYLENOL PO (15:56)
[2024-10-19] MEDS: ANCEF 5 IV (18:17)
[2024-10-19] MEDS: DILAUDID 0.5 MG IV (18:18)
[2024-10-19] MEDS: ASPIRIN 325 MG PO (18:21)
--- NOTE | 2024-10-19 19:32 | PTCARENOTE ---
spinal anesthseia with a canal block. EBL 5mls, for RTK revision. pt arrived to floor 1700. AOx3. PT assessed in PACU where she walked to bathroom with RW. ordered regular dinner. LW 20 NormR at 100. bed low, call dominguez at reach. Teds and foot pumps
in place. Dressing in placed with 2 scant shadowing spots. did take self to bathroom pushing IV pole, requested she call us. at bedside
[2024-10-19] MEDS: LAMICTAL 150 MG PO (19:39)
[2024-10-19] MEDS: DECADRON 4 MG PO (19:39)
[2024-10-19] MEDS: COLACE 100 MG PO (19:39)
[2024-10-19] MEDS: NON-FORMULARY ITEM 20 MG PO (19:39)
[2024-10-19] MEDS: RESTASIS 0.05% OPHTHALMIC EMULSION 1 DROPS OPHTH (19:40)
[2024-10-19] MEDS: MIRALAX 17 GRAMS PO (19:40)
[2024-10-19] MEDS: DESYREL 200 MG PO (21:51)
[2024-10-19] MEDS: BACTROBAN 2% OINTMENT 1 APPLIC NASAL (21:51)
[2024-10-19] MEDS: NEURONTIN 300 MG PO (21:52)
[2024-10-19] MEDS: KLONOPIN 1 MG PO (21:52)
[2024-10-19] MEDS: PEPCID 20 MG PO (21:52)
[2024-10-19] MEDS: ROXICODONE 5 MG PO (22:51)
[2024-10-20] MEDS: TYLENOL 650 MG PO ×3 (00:15→09:44)
[2024-10-20] MEDS: ANCEF 5 IV (02:38)
[2024-10-20 03:00] VITALS: BP 107/57
[2024-10-20] MEDS: ROXICODONE 5 MG PO ×2 (06:03→08:44)
[2024-10-20 08:18] VITALS: BP 112/64; BP 137/69; PULSE 68; O2SAT 94
--- NOTE | 2024-10-20 08:27 | W.PN.ORTHO ---
Today's Communication / Plan
-
Await PT recs. Did well w/ OT.
D/c later today if remaining clinically stable.
Assessment
.
Distal Motor Intact: Yes
Dressing:
Small areas of old incisional bleeding - expected given revision.
Assessment:
Mechanical failure of R TKA s/p Revision of R TKA w/ Dr Ray 10/19/24
- EARLY DISCHARGE
DVT prophylaxis - ASA, b/l venous foot pumps
Hypertension, on multi-drug regimen - BPs overall stable
- Adequate pain control ensured
PVCs, asymptomatic - rhythm stable on tele (NSR)
- Continue BB
Exercise-induced asthma and chronic DELEON - O2 stable on RA
- IS
- Duoneb prn
GERD and Hogan's esophagus - continue Voquezna daily (if available per pharmacy)
- Pepcid HS while inpatient if Voquezna unavailable
Chronic constipation - per pt preference, will start Colace w/ home Miralax
- Will add Senna if no BM occurs within 48-72 hours post-op
- Adequate hydration, early mobility as tolerated, and the minimization of opioids discussed pre-op
Peripheral neuropathy - added Gabapentin HS (tolerated after prior L TKA)
History of iron deficiency anemia - non-invasive hgb stable at 11.7
- Asymptomatic, hemodynamically stable
Anxiety with benzodiazepine dependence - will hold Clonazepam if pt becomes overly sedated while on Oxy for post-surgical pain
- Pt tolerating Clonazepam and Oxycodone well
OA, s/p R TKA, 09/2012, and L TKA, 07/2024, by Dr Ray
Venous varicosities, status post bilateral varicose vein ablation
Remote migraines
Multilevel degenerative disc disease
Rheumatoid arthritis
Multinodular goiter
Eczema
ADD
Bipolar disorder
Osteopenia
Lyme's disease 1995
Dry eyes
Prediabetes, A1c 5.8
Plan
.
Surgery / Date: Revision of R TKA w/ Dr Ray 10/19/24
DVT Prophylaxis: Aspirin
Activity:
Out of bed.
PT/OT
Discharge Plan: Home w/ Outpatient PT
Subjective
.
.:
Patient resting comfortably in her chair.
R knee pain overall well controlled w/ current pain meds.
Denies any new significant complaints.
Eager for early discharge today.
Vital Signs and Labs
.
Vital Signs and Labs:
Lab Results
10/09/24 13:35
10/09/24 13:35
Temp Pulse Resp BP Pulse Ox
98.2 F 66 16 107/57 93
10/20/24 03:00 10/20/24 03:00 10/20/24 03:00 10/20/24 03:00 10/20/24 03:00
Non-invasive Hgb result: 11.7
Physical Exam
-
HEENT: No pallor, cyanosis, or jaundice. Throat clear.
NECK: Supple. No JVD.
RESPIRATORY: Lungs clear to auscultation.
CVS: S1, S2 normal. RRR.�
ABDOMEN: Soft, non-tender. No distension. BS+/normal.
EXTREMITIES: Post-surgical R knee edema. Strength equal, no calf pain with palpation/dorsiflexion. Calves soft.
MEDICAL COLLECTOR: AOx3. No focal deficits. fruit distributor grossly intact
[2024-10-20 08:30] VITALS: BP 119/73
--- NOTE | 2024-10-20 08:38 | W.DS.TRANS ---
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
-
Discharge Instructions:
Sleep Apnea Risk Intermediate
Discharge Diagnosis/Procedures Mechanical failure of R TKA s/p Revision of R
TKA w/ Dr Ray 10/19/24
Diet Regular
Additional Diets Adequate hydration, minimize opioids, and wear
TEDs stockings to prevent low blood pressure/
dizziness.
Activity As tolerated,With Walker
Driving Restrictions Not until seen by your Dr
Bathing Restrictions OK to Shower
Other Services PT
Wound Care Dressing to be removed 1 week post-surgery.
[place] to be removed at 2 week follow-up with
surgeon's office.
Instructions:
Stand-Alone Forms: Total Hip/Knee Replacement D/C
Changes to Home Medications: Yes
Discharge Medications:
DC Medications w/original date entered in [employer] [facility] [employer]
cetirizine 10 mg tablet (Zyrtec) 10 mg PO DAILY PRN allergies 06/19/24
cyclosporine 0.05 % eye drops in a dropperette (Restasis) 1 drp ophthalmic (eye) Q12H 06/19/24
desvenlafaxine succinate 100 mg tablet,extended release 24 hr (Pristiq) 100 mg PO DAILY 06/19/24
estradiol 10 mcg vaginal tablet (Vagifem) 10 mcg vaginal .2 TIMES A WEEK 06/19/24
lamotrigine 150 mg tablet 150 mg PO BID 06/19/24
lisdexamfetamine 70 mg capsule (Vyvanse) 70 mg PO 1400 06/19/24
multivitamin 1 tab PO DAILY 06/19/24
polyethylene glycol 3350 17 gram oral powder packet (Miralax) 17 g PO BID 06/19/24
trazodone 100 mg tablet 200 mg PO HS 06/19/24
nebivolol 10 mg tablet 10 mg PO DAILY 07/07/24
vonoprazan 20 mg tablet (Voquezna) 20 mg PO DAILY 10/08/24
Vitamin D3 1 tab PO BID 10/09/24
dexamethasone 4 mg tablet 4 mg PO BID Anti-inflammatory #7 tabs 10/09/24
gabapentin 300 mg capsule 300 mg PO HS neuropathic pain/sleep #10 caps 10/09/24
meloxicam 15 mg tablet 15 mg PO DAILY #14 tabs 10/09/24
mupirocin 2 % topical ointment 1 applic intranasal BID #1 tube 10/09/24
ondansetron HCl 4 mg tablet 4 mg PO Q6H PRN nausea and vomiting #30 tabs 10/09/24
oxycodone 5 mg tablet 5 - 10 mg (1 - 2 x 5 mg) PO Q6H PRN moderate-severe pain #30 tabs 10/09/24
acetaminophen 325 mg tablet 650 mg (2 x 325 mg) PO Q4HWA #60 tabs 10/20/24
aspirin 325 mg tablet 325 mg PO DAILY #30 tabs 10/20/24
clonazepam 1 mg tablet 0.5 mg (1/2 x 1 mg) PO .MORNING & NOON #1 tab 10/20/24
clonazepam 1 mg tablet 1 mg PO HS #1 tab 10/20/24
docusate sodium 100 mg capsule 100 mg PO BID #30 caps 10/20/24
hydrochlorothiazide 25 mg tablet 25 mg PO DAILY #1 tab 10/20/24
irbesartan 75 mg tablet 75 mg PO DAILY #1 tab 10/20/24
sennosides 8.6 mg tablet (Pauline-julio) 17.2 mg (2 x 8.6 mg) PO BIDPRN PRN constipation #30 tabs 10/20/24
Home Medication Changes
dexamethasone 4 mg tablet 4 mg PO BID Anti-inflammatory #7 tabs 10/09/24
gabapentin 300 mg capsule 300 mg PO HS neuropathic pain/sleep #10 caps 10/09/24
meloxicam 15 mg tablet 15 mg PO DAILY #14 tabs 10/09/24
mupirocin 2 % topical ointment 1 applic intranasal BID #1 tube 10/09/24
ondansetron HCl 4 mg tablet 4 mg PO Q6H PRN nausea and vomiting #30 tabs 10/09/24
oxycodone 5 mg tablet 5 - 10 mg (1 - 2 x 5 mg) PO Q6H PRN moderate-severe pain #30 tabs 10/09/24
acetaminophen 325 mg tablet 650 mg (2 x 325 mg) PO Q4HWA #60 tabs 10/20/24
aspirin 325 mg tablet 325 mg PO DAILY #30 tabs 10/20/24
docusate sodium 100 mg capsule 100 mg PO BID #30 caps 10/20/24
sennosides 8.6 mg tablet (Pauline-julio) 17.2 mg (2 x 8.6 mg) PO BIDPRN PRN constipation #30 tabs 10/20/24
Pending Results: No
[2024-10-20] MEDS: RESTASIS 0.05% OPHTHALMIC EMULSION 1 DROPS OPHTH (09:44)
[2024-10-20] MEDS: LAMICTAL 150 MG PO (09:45)
[2024-10-20] MEDS: KLONOPIN 0.5 MG PO (09:45)
[2024-10-20 09:47] VITALS: BP 125/68; PULSE 66; O2SAT 99
[2024-10-20] MEDS: ASPIRIN 325 MG PO (09:47)
[2024-10-20] MEDS: DECADRON 4 MG PO (09:47)
[2024-10-20] MEDS: BYSTOLIC 10 MG PO (09:48)
[2024-10-20] MEDS: MOBIC 15 MG PO (09:48)
[2024-10-20] MEDS: MIRALAX PO (09:49)
[2024-10-20] MEDS: COLACE 100 MG PO (09:49)
[2024-10-20] MEDS: NON-FORMULARY ITEM 20 MG PO (09:50)
[2024-10-20] MEDS: BACTROBAN 2% OINTMENT 1 APPLIC NASAL (09:50)
--- NOTE | 2024-10-20 09:56 | W.DS.TRANS ---
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
-
Discharge Instructions:
Sleep Apnea Risk Intermediate
Discharge Diagnosis/Procedures Mechanical failure of R TKA s/p Revision of R
TKA w/ Dr Ray 10/19/24
Diet Regular
Additional Diets Adequate hydration, minimize opioids, and wear
TEDs stockings to prevent low blood pressure/
dizziness.
Activity As tolerated,With Walker
Additional Activity Activities to be done with supervision for safe
mobility.
Driving Restrictions Not until seen by your Dr
Bathing Restrictions OK to Shower
Other Services PT
Wound Care Dressing to be removed 1 week post-surgery.
[place] to be removed at 2 week follow-up with
surgeon's office.
Instructions:
Stand-Alone Forms: Total Hip/Knee Replacement D/C
Changes to Home Medications: Yes
Discharge Medications:
DC Medications w/original date entered in [employer]
cetirizine 10 mg tablet (Zyrtec) 10 mg PO DAILY PRN allergies 06/19/24
cyclosporine 0.05 % eye drops in a dropperette (Restasis) 1 drp ophthalmic (eye) Q12H 06/19/24
desvenlafaxine succinate 100 mg tablet,extended release 24 hr (Pristiq) 100 mg PO DAILY 06/19/24
estradiol 10 mcg vaginal tablet (Vagifem) 10 mcg vaginal .2 TIMES A WEEK 06/19/24
lamotrigine 150 mg tablet 150 mg PO BID 06/19/24
lisdexamfetamine 70 mg capsule (Vyvanse) 70 mg PO 1400 06/19/24
multivitamin 1 tab PO DAILY 06/19/24
polyethylene glycol 3350 17 gram oral powder packet (Miralax) 17 g PO BID 06/19/24
trazodone 100 mg tablet 200 mg PO HS 06/19/24
nebivolol 10 mg tablet 10 mg PO DAILY 07/07/24
vonoprazan 20 mg tablet (Voquezna) 20 mg PO DAILY 10/08/24
Vitamin D3 1 tab PO BID 10/09/24
dexamethasone 4 mg tablet 4 mg PO BID Anti-inflammatory #7 tabs 10/09/24
gabapentin 300 mg capsule 300 mg PO HS neuropathic pain/sleep #10 caps 10/09/24
meloxicam 15 mg tablet 15 mg PO DAILY #14 tabs 10/09/24
mupirocin 2 % topical ointment 1 applic intranasal BID #1 tube 10/09/24
ondansetron HCl 4 mg tablet 4 mg PO Q6H PRN nausea and vomiting #30 tabs 10/09/24
oxycodone 5 mg tablet 5 - 10 mg (1 - 2 x 5 mg) PO Q6H PRN moderate-severe pain #30 tabs 10/09/24
acetaminophen 325 mg tablet 650 mg (2 x 325 mg) PO Q4HWA #60 tabs 10/20/24
aspirin 325 mg tablet 325 mg PO DAILY #30 tabs 10/20/24
clonazepam 1 mg tablet 0.5 mg (1/2 x 1 mg) PO .MORNING & NOON #1 tab 10/20/24
clonazepam 1 mg tablet 1 mg PO HS #1 tab 10/20/24
docusate sodium 100 mg capsule 100 mg PO BID #30 caps 10/20/24
hydrochlorothiazide 25 mg tablet 25 mg PO DAILY #1 tab 10/20/24
irbesartan 75 mg tablet 75 mg PO DAILY #1 tab 10/20/24
sennosides 8.6 mg tablet (Pauline-julio) 17.2 mg (2 x 8.6 mg) PO BIDPRN PRN constipation #30 tabs 10/20/24
Home Medication Changes
dexamethasone 4 mg tablet 4 mg PO BID Anti-inflammatory #7 tabs 10/09/24
gabapentin 300 mg capsule 300 mg PO HS neuropathic pain/sleep #10 caps 10/09/24
meloxicam 15 mg tablet 15 mg PO DAILY #14 tabs 10/09/24
mupirocin 2 % topical ointment 1 applic intranasal BID #1 tube 10/09/24
ondansetron HCl 4 mg tablet 4 mg PO Q6H PRN nausea and vomiting #30 tabs 10/09/24
oxycodone 5 mg tablet 5 - 10 mg (1 - 2 x 5 mg) PO Q6H PRN moderate-severe pain #30 tabs 10/09/24
acetaminophen 325 mg tablet 650 mg (2 x 325 mg) PO Q4HWA #60 tabs 10/20/24
aspirin 325 mg tablet 325 mg PO DAILY #30 tabs 10/20/24
docusate sodium 100 mg capsule 100 mg PO BID #30 caps 10/20/24
sennosides 8.6 mg tablet (Pauline-julio) 17.2 mg (2 x 8.6 mg) PO BIDPRN PRN constipation #30 tabs 10/20/24
Pending Results: No
== END 2024-10-20 10:48 | disposition home or self-care (01) | DRG 467 ==
LOC: 2 SOUTH 08:37
PROVIDERS: ADMITTING PHYSICIAN Specialist; FAMILY PHYSICIAN Internal Medicine
PROC: 0SPC0JZ Removal of Synthetic Substitute from Right Knee Joint, Open Approach (ICD-10-PCS; 2024-10-19)
PROC: 0SRC0J9 Replacement of Right Knee Joint with Synthetic Substitute, Cemented, Open Approach (ICD-10-PCS; 2024-10-19)
DX: T84.092A Other mechanical complication of internal right knee prosthesis, initial encounter (principal); F13.20 Sedative, hypnotic or anxiolytic dependence, uncomplicated; Y79.2 Prosthetic and other implants, materials and accessory orthopedic devices associated with adverse incidents; Z96.652 Presence of left artificial knee joint; I10 Essential (primary) hypertension; I49.3 Ventricular premature depolarization; I83.90 Asymptomatic varicose veins of unspecified lower extremity; J45.990 Exercise induced bronchospasm; K21.9 Gastro-esophageal reflux disease without esophagitis; K22.70 Barrett's esophagus without dysplasia; K59.09 Other constipation; G62.9 Polyneuropathy, unspecified; D50.9 Iron deficiency anemia, unspecified; F41.9 Anxiety disorder, unspecified; R73.03 Prediabetes; M85.80 Other specified disorders of bone density and structure, unspecified site; M06.9 Rheumatoid arthritis, unspecified; L30.9 Dermatitis, unspecified; F31.9 Bipolar disorder, unspecified; Z86.19 Personal history of other infectious and parasitic diseases
CPT/HCPCS: 36415; 73560; 80053; 83036; 85027; 86850; 86900; 86901; 87070; 97110; 97116; 97162; 97166; 97530; 97535; C1713; C1762; C1776

== ENCOUNTER → 2024-11-10 13:03 | Outpatient (REF) | payer BC, MEDICARE, SELFPAY ==
[2024-11-10 14:17] LABS: Hematocrit 33.3 % (37.0-47.0); Hemoglobin 11.1 g/dL (12.0-16.0); Mean Corp Hgb Conc. 33.3 g/dL (33.0-37.0); Mean Corpuscular Volume 94.3 fL (81.0-99.0); Nucleated Red Blood Cells % 0 %; Platelet Count 300 10^3/uL (130-400); Red Cell Dist. Width 13.5 % (11.5-14.5); Urine Character Clear (Clear)
[2024-11-10 14:39] LABS: ALT (SGPT) 14 U/L (0-35); AST (SGOT) 23 U/L (14-36); Albumin 4.3 g/dl (3.5-5.0); Alkaline Phosphatase 145 U/L (38-126); Blood Urea Nitrogen 16 mg/dl (7-17); Calcium 9.9 mg/dl (8.4-10.2); Carbon Dioxide 31 mmol/L (22-30); Chloride 100 mmol/L (98-107); Glucose 100 mg/dl (70-99); Lipase 34 U/L (23-300); Potassium 4.0 mmol/L (3.5-5.1); Sodium 136 mmol/L (135-145); Total Protein 7.3 g/dl (6.3-8.2); eGFR > 60.00
[2024-11-10 14:40] LABS: Troponin I < 0.012 ng/ml
== END ==
LOC: RAD 13:03
PROVIDERS: ATTENDING PHYSICIAN Nurse Practitioner Family; FAMILY PHYSICIAN Internal Medicine
DX: M79.89 Other specified soft tissue disorders (principal); Z96.651 Presence of right artificial knee joint; R10.12 Left upper quadrant pain
CPT/HCPCS: 36415; 80053; 81003; 83690; 84484; 85025; 93005; 93971

== ENCOUNTER 2024-12-12 15:23 | Emergency (ER) | payer BC, MEDICARE, SELFPAY ==
[2024-12-12 15:34] VITALS: BP 158/96
[2024-12-12 16:29] LABS: ALT (SGPT) 12 U/L (0-35); AST (SGOT) 26 U/L (14-36); Albumin 4.5 g/dl (3.5-5.0); Alkaline Phosphatase 138 U/L (38-126); Blood Urea Nitrogen 16 mg/dl (7-17); Calcium 9.8 mg/dl (8.4-10.2); Carbon Dioxide 31 mmol/L (22-30); Chloride 102 mmol/L (98-107); Glucose 94 mg/dl (70-99); Potassium 4.1 mmol/L (3.5-5.1); Sodium 137 mmol/L (135-145); Total Protein 7.6 g/dl (6.3-8.2); eGFR > 60.00
[2024-12-12 16:39] LABS: Troponin I < 0.012 ng/ml
--- NOTE | 2024-12-12 18:54 | ED.GENMED ---
History of Present Illness
General
Chief Complaint: Chest Pain
Time Seen by Provider: 12/12/24 18:54
History of Present Illness
History of Present Illness:
FOCUSED PAST MEDICAL HISTORY
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
REVIEW OF OLD RECORDS
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 Ray on 10/19/2024
Note:
CHIEF COMPLAINT(S)
Chest discomfort following administration of semaglutide.
HISTORY OF PRESENT ILLNESS
The patient is a 69-year-old female with a history of anxiety and recent knee surgery. She presented with chest discomfort that began immediately after receiving a half dose of semaglutide, administered at the pharmacy this morning around 10 a.m.
The patient reported feeling the medication 'go up' and subsequently experienced chest pain. After returning home, she felt sweaty and clammy around 1 p.m. She has a history of anxiety and mentioned a panic attack during a previous ER visit. She is
currently using oxycodone for knee pain, following knee replacement surgery in October this year, but did not take her dose today due to being in a [place]. She also did not take her blood pressure medication this morning. The patient is seeing a
daycare worker in January. Her EKG and initial cardiac blood work were normal, and anxiety is suspected to be a significant factor in her symptoms today.
SOCIAL DETERMINANTS OF HEALTH
The patient reports stress related to medication use and timing, along with anxiety about her recent semaglutide injection and its potential effects.
PHYSICAL EXAM
- General: Well appearing in no distress
- HEENT: Moist oral mucosa
- Cardiovascular: No murmurs, normal heart rate, regular rhythm, No chest wall tenderness
- Pulmonary: No respiratory distress, breath sounds are clear and equal
- Abdomen: Soft with no peritoneal signs, no tenderness
- Neurologic: Excellent strength all extremities, no coordination deficits
- Psychiatric: Appropriate mental status, normal insight and judgement but appears somewhat anxious at times
- Extremities: Nontender, no edema, moves all extremities equally
- Skin: No rash, no lesions
PLAN
- Repeat cardiac blood work to rule out any acute coronary syndrome despite low suspicion based on the initial workup and EKG.
DIFFERENTIAL DIAGNOSIS
- The Differential Diagnosis includes, in no particular order and is not limited to:
- Anxiety/panic attack
- Side effect of semaglutide
- Acute coronary syndrome
- Gastroesophageal reflux disease
- Musculoskeletal pain
- Non-cardiac chest pain
- Medication-induced hypertension
- Hyperventilation syndrome
- Stress-related disorder
- Medication adverse effects
SUMMARY OF ENCOUNTER
The patient was seen in the emergency department due to chest discomfort following her first dose of semaglutide. Initial assessment, including EKG and cardiac enzymes, revealed no signs of acute coronary events. It was suggested that anxiety may
play a role in her present symptoms.
DISPOSITION
Await repeat cardiac enzyme results for final disposition.
INDEPENDENT REVIEW OF LABS AND INTERPRETATION OF TESTS
- My independent review of the initial cardiac blood work is normal, with no indicative signs of myocardial infarction.
MEDICATION RECONCILIATION
- The patient is on oxycodone for knee pain. Did not take her dose today.
- Blood pressure medications not taken today as instructed when blood pressure readings are below 127/80.
MEDICAL DECISION MAKING
- Complexity of Data Reviewed: Chronic conditions affecting care include anxiety and hypertension.
- Data:
Category 1
- My independent interpretation of initial cardiac blood work shows no acute coronary syndrome.
- Repeat cardiac blood test to be conducted.
Category 3
- Discussion of care and potential anxiety component with the patient.
- Risk:
- Consideration of Admission/Observation: Escalation of care including admission/observation was considered given the complexity and risk of the patients presenting complaint, exam findings, and/or their underlying comorbidities. However, ultimately
I feel the patient is safe for outpatient management with close follow-up. Reasoning: Work-up and EKG do not reveal acute life/organ threatening processes, symptoms potentially attributable to anxiety, stable upon reassessment, patient agrees with
discharge, reliable for follow-up.
DIAGNOSIS
- Anxiety Disorder (ICD-10: F41.9)
- Chest Pain, Unspecified (ICD-10: R07.9)
- Hypertension, Unspecified (ICD-10: I10)
- Postoperative Pain (ICD-10: G89.18)
Disposition:
SUMMARY OF ENCOUNTER
The patient was seen in the emergency department for chest discomfort following her first dose of semaglutide. Initial assessment, including EKG and cardiac enzymes, revealed no signs of acute coronary events, and repeat cardiac blood work was also
normal. Anxiety was considered a potential factor in her symptoms.
DISPOSITION
Discharge.
PLAN
The patient is advised to continue taking her blood pressure medications as previously instructed. Discharge paperwork is being prepared for the patient to go home.
INDEPENDENT REVIEW OF LABS AND INTERPRETATION OF TESTS
My independent review of initial cardiac blood work is normal, with no indicative signs of myocardial infarction. My independent interpretation of repeat cardiac blood work is that it is fine.
MEDICATION RECONCILIATION
The patient was advised to continue with her blood pressure medications as directed prior.
MEDICAL DECISION MAKING
-Complexity of Data Reviewed: Chronic conditions affecting care, including anxiety and hypertension. Differential Diagnosis includes anxiety/panic attack, side effect of semaglutide, acute coronary syndrome, gastroesophageal reflux disease,
musculoskeletal pain, non-cardiac chest pain, medication-induced hypertension, hyperventilation syndrome, stress-related disorder, and medication adverse effects.
-Data:
Category 1
- My independent interpretation of initial cardiac blood work showed no acute coronary syndrome.
- Repeat cardiac blood test was conducted and independently interpreted as normal.
-Risk:
Consideration of Admission/Observation: Escalation of care including admission/observation was considered given the complexity and risk of the patients presenting complaint, exam findings, and/or their underlying comorbidities. However, ultimately,
I feel the patient is safe for outpatient management with close follow-up. Reasoning: Work-up and EKG do not reveal acute life/organ threatening processes, symptoms potentially attributable to anxiety, stable upon reassessment, patient agrees with
discharge, reliable for follow-up.
DIAGNOSIS
- Anxiety Disorder (ICD-10: F41.9)
- Chest Pain, Unspecified (ICD-10: R07.9)
- Hypertension, Unspecified (ICD-10: I10)
- Postoperative Pain (ICD-10: G89.18)
EKG
- Sinus 74, nonspecific ST abnormality, no significant change from 08/17/2024
LABS
- Troponin less than 0.012 x 2, CBC and chemistries unremarkable
Past History
Past History
ED Past Medical History: HTN and Other (Rheumatoid arthritis, osteoarthritis, depression, anxiety)
ED Past Surgical History: Other (Procedures for varicosities)
Social History
Tobacco: Non-smoker
Alcohol: None
Drug: None
Personal:
Living: with family
Employment: Employed
Family History
Family History: Other (Noncontributory)
Phy Exam
Physical Exam
Physical Exam:
See HPI
Scores
Heart Score for Chest Pain Patients
STEMI patient?: Not applicable
Course
Orders/Labs/Results
Orders:
Orders
12/12/24 15:25
EKG [Electrocardiogram (*1)] Urgent
Reason for Study: Chest Pain
EKG- Treatment ONCE
12/12/24 15:49
Comprehensive Metabolic Panel Urgent
Troponin I Urgent
12/12/24 16:08
Prothrombin Time Urgent
12/12/24 19:35
Complete Blood Count/With Diff Urgent
Troponin I Urgent
Abnormal Lab Results
12/12/24 12/12/24
15:49 19:35
WBC 4.5 L 10^3/uL
(4.8-10.8)
RBC 3.82 L 10^6/uL
(4.20-5.40)
Hgb 11.5 L g/dL
(12.0-16.0)
Hct 34.0 L %
(37.0-47.0)
Absolute Lymphs (auto) 0.9 L 10^3/uL
(1.2-3.4)
Monocytes % 9.6 H %
(1.7-9.3)
Carbon Dioxide 31 H mmol/L
(22-30)
Alkaline Phosphatase 138 H U/L
(38-126)
12/12/24 19:35
12/12/24 15:49
Vital Signs
Initial and Last Documented VS:
Initial Vital Signs
Temp Pulse Resp Pulse Ox
36.9 C 88 18 98
12/12/24 15:31 12/12/24 15:31 12/12/24 15:31 12/12/24 15:31
Last Documented Vital Signs
Temp Pulse Resp BP Pulse Ox
36.9 C 88 18 158/96 98
12/12/24 15:31 12/12/24 15:31 12/12/24 15:31 12/12/24 15:34 12/12/24 18:55
*Pulse Oximetry
SaO2: 98
Oxygen Mode of Delivery: Room air
Patient hypoxic: no
*Critical Care Note
Total Time (30-74mins, 75-104mins- exclusive of procedures): Not Applicable
ED Attending Note
-
Portions of this chart may have been created with voice recognition software.� Occasional wrong word or��sound alike� substitutions may have occurred due to the inherent limitations of voice recognition software.
Discharge Plan
Departure
Patient Disposition: Home (Routine Discharge)
Date of Disposition: 12/12/24
Time of Disposition: 20:25
Patient with high blood pressure during this ER visit?: Yes
Discharge Problem:
Chest pain
Instructions: Chest Pain PCP Follow Up, BLOOD PRESSURE
Prescriptions:
No Action
multivitamin Tablet
1 tab PO DAILY
lamotrigine 150 mg Tablet
150 mg PO BID
polyethylene glycol 3350 [Miralax] 17 gram Powder In Packet
17 g PO BID
cetirizine [Zyrtec] 10 mg Tablet
10 mg PO DAILY PRN (Reason: allergies)
trazodone 100 mg Tablet
200 mg PO HS
cyclosporine [Restasis] 0.05 % Dropperette
1 drp OPHTHALMIC (EYE) Q12H
lisdexamfetamine [Vyvanse] 70 mg Capsule
70 mg PO 1400
desvenlafaxine succinate [Pristiq] 100 mg Tablet Extended Release 24 Hr
100 mg PO DAILY
estradiol [Vagifem] 10 mcg Tablet
10 mcg VAGINAL .2 TIMES A WEEK
nebivolol 10 mg Tablet
10 mg PO DAILY
Voquezna 20 mg Tablet
20 mg PO DAILY
Vitamin D3
1 tab PO BID
mupirocin 2 % ointment
1 applic intranasal BID Qty: 1 0RF
Patient Comments:
started monday 10/16 bid ,did apply this am
oxycodone 5 mg tablet
5 - 10 mg PO Q6H PRN (Reason: moderate-severe pain) Qty: 30 0RF
Rx Instructions:
1 tab for moderate pain, 2 if severe.
Dx total joint.
meloxicam 15 mg tablet
15 mg PO DAILY Qty: 14 0RF
Rx Instructions:
Take with food.
DO NOT take within 2 hours of Aspirin post-surgery.
dexamethasone 4 mg tablet
4 mg PO BID Qty: 7 0RF
Rx Instructions:
Start night of discharge and continue twice a day until finished.
Take with food.
gabapentin 300 mg capsule
300 mg PO HS Qty: 10 0RF
ondansetron HCl 4 mg tablet
4 mg PO Q6H PRN (Reason: nausea and vomiting) Qty: 30 0RF
aspirin 325 mg Tablet
325 mg PO DAILY Qty: 30 0RF
Rx Instructions:
Take daily x4 weeks for blood clot prevention
docusate sodium 100 mg Capsule
100 mg PO BID Qty: 30 0RF
sennosides [Pauline-julio] 8.6 mg Tablet
17.2 mg PO BIDPRN PRN (Reason: constipation) Qty: 30 0RF
Rx Instructions:
Add to bowel regimen of Colace/Miralax if no bowel movement occurs within 48-72 hours post-surgery.
acetaminophen 325 mg Tablet
650 mg PO Q4HWA Qty: 60 0RF
Rx Instructions:
DO NOT exceed >4000 mg daily.
clonazepam 1 mg Tablet
0.5 mg PO .MORNING & NOON Qty: 1 0RF
Rx Instructions:
Caution with Oxycodone - can cause drowsiness.
Use narcotic sparingly if continuing this medication.
clonazepam 1 mg Tablet
1 mg PO HS Qty: 1 0RF
Rx Instructions:
Caution with Oxycodone - can cause drowsiness.
Use narcotic sparingly if continuing this medication.
irbesartan 75 mg Tablet
75 mg PO DAILY Qty: 1 0RF
Rx Instructions:
HOLD IF systolic blood pressure <130 while on post-surgical narcotics.
hydrochlorothiazide 25 mg Tablet
25 mg PO DAILY Qty: 1 0RF
Rx Instructions:
HOLD IF systolic blood pressure <130 while on post-surgical narcotics.
Referrals:
Chicho Jewell MD [Family Provider, Internal Medicine]
Activity Restrictions/Additional Instructions:
I recommend that you follow-up your primary care doctor. EKG and 2 cardiac blood test were both normal today. Return here if worse or other concerns. Continue your blood pressure medication.
Interventions
Interventions:
*Risk Screen - Suicide Last Done: 12/12/24 15:31
*General Assessment Last Done: 12/12/24 15:31
*Neglect/Abuse Screening Last Done: 12/12/24 15:31
*ED- Fall Risk Assessment Last Done: 12/12/24 15:31
*ED COVID-19 Vaccine History Last Done: 12/12/24 15:31
Discharge Date and Time
Print Language: IRANIAN
[2024-12-12 19:46] LABS: Hematocrit 34.0 % (37.0-47.0); Hemoglobin 11.5 g/dL (12.0-16.0); Mean Corp Hgb Conc. 33.8 g/dL (33.0-37.0); Mean Corpuscular Volume 89.0 fL (81.0-99.0); Nucleated Red Blood Cells % 0 %; Platelet Count 292 10^3/uL (130-400); Red Cell Dist. Width 11.9 % (11.5-14.5)
[2024-12-12 20:20] LABS: Troponin I < 0.012 ng/ml
== END 2024-12-12 21:09 | disposition home or self-care (01) ==
LOC: EMR 15:23
PROVIDERS: Emergency Medicine; EMERGENCY PHYSICIAN Emergency Medicine; FAMILY PHYSICIAN Internal Medicine Geriatric Medicine
DX: R07.89 Other chest pain (principal); J45.990 Exercise induced bronchospasm; K21.9 Gastro-esophageal reflux disease without esophagitis; F41.8 Other specified anxiety disorders; I10 Essential (primary) hypertension; M06.9 Rheumatoid arthritis, unspecified; Z96.651 Presence of right artificial knee joint
CPT/HCPCS: 99283; 80053; 84484; 85025; 93005

== ENCOUNTER → 2025-02-19 18:59 | Outpatient (REF) | payer BC, MEDICARE, SELFPAY | LOC: PAVMRI 18:59 | PROVIDERS: ATTENDING PHYSICIAN Physician Assistant Surgical; FAMILY PHYSICIAN Internal Medicine | DX: M41.9 Scoliosis, unspecified (principal); M54.50 Low back pain, unspecified | CPT/HCPCS: 72148 ==